=== PATIENT | male | born 1930 | race Caucasian/White ===

== ENCOUNTER 2016-11-14 16:19 | Emergency (ER) | payer MEDICARE, BC ==
--- NOTE | ~2016-11-14 | CR72 ---
[facility] A Service [facility] RADIOLOGY TEXT RESULTS PATIENT: MAXIMO GIRALDO LOCATION: [facility] : 29 UNIT #: [id number] AGE: [address]: Kenji Gant MD SEX: M ORDER DR: [id number] [place], [place] [address] [id number] E MR#: [id number] Acc #: [id number] NAME: MAXIMO GIRALDO. : 1930 SEX: M STUDY DATE/TIME: 11/14/2016 16:36 UNIT: [facility] ROOM: STUDY DESCRIPTION: CR Chest Single View Portable Attending Physician: Kenji Gant M.D. Ordering Physician: Gaye Painting M.D. Primary Care Physician: No Primary Care Physician MEDICAL IMAGING REPORT This report is preliminary unless electronic signature is present EXAM Portable chest. DATE OF EXAM 11/14/2016 INDICATIONS 86-year-old female with shortness of breath, weakness, nausea and vomiting today. COMPARISON 04/11/2016 FINDINGS Low-volume inspiration. There is mild atelectasis in the right base. Heart size stable. Atherosclerotic calcification of the aorta. Degenerative change of the shoulders. IMPRESSION No active disease. Dictated by... Blake Monte M.D. THIS IS AN ELECTRONICALLY VERIFIED REPORT Blake Monte M.D. at 11/15/2016 9:09 AM HEVER/brandi TD: 11/14/2016 21:58 JOB #: [id number] MEDICAL IMAGING REPORT [facility] A [facility] RADIOLOGY TEXT RESULTS PATIENT: MAXIMO GIRALDO LOCATION: [facility] : 29 UNIT #: [id number] AGE: [address]: Kenji Gant MD SEX: M ORDER DR: Page 1 of 1 COPY
--- NOTE | ~2016-11-14 | NM69 ---
[facility] A Service of [facility] RADIOLOGY TEXT RESULTS PATIENT: MAXIMO GIRALDO LOCATION: [facility] : 29 UNIT #: [id number] AGE: [address]: Kenji Gant MD SEX: M ORDER DR: [id number] [place], [place] [address] [id number] E MR#: [id number] Acc #: [id number] NAME: MAXIMO GIRALDO : 1930 SEX: M STUDY DATE/TIME: 11/14/2016 19:24 UNIT: [facility] ROOM: STUDY DESCRIPTION: NM Pulm Vent and Perf Attending Physician: Kenji Gant M.D. Ordering Physician: Gaye Painting M.D. Primary Care Physician: Primary Care Physician No MEDICAL IMAGING REPORT This report is preliminary unless electronic signature is present EXAM Ventilation-perfusion lung scan, 11/14/2016 CLINICAL HISTORY Hypoxemia, dizziness and weakness. Fell today at work. COMPARISON Chest radiograph same date. PROCEDURE Study performed with 34.5 mCi technetium 99m DTPA aerosol by inhalation followed by 5.9 mCi technetium 99m MAA IV. Chest radiograph shows no consolidation, effusion, pneumothorax or other definite acute abnormality. Ventilation images are normal. Perfusion images are normal except for slight heterogeneity. IMPRESSION Low likelihood ratio for pulmonary embolism. Dictated by... Romie Aleman M.D. THIS IS AN ELECTRONICALLY VERIFIED REPORT Romie Aleman M.D. at 11/17/2016 5:03 PM TEV/ljd [facility] A Service [facility] RADIOLOGY TEXT RESULTS PATIENT: MAXIMO GIRALDO LOCATION: [facility] : 29 UNIT #: [id number] AGE: [address]: Kenji Gant MD SEX: M ORDER DR: TD: 11/15/2016 01:32 JOB #: [id number] MEDICAL IMAGING REPORT Page 1 of 1 COPY
--- NOTE | ~2016-11-14 | CT57 ---
[facility] A Service of [facility] RADIOLOGY TEXT RESULTS PATIENT: MAXIMO GIRALDO LOCATION: [facility] : 29 UNIT #: [id number] AGE: [address]: Kenji Gant MD SEX: M ORDER DR: [id number] [facility] [address] [place], [place] [address] [id number] E MR#: [id number] Acc #: [id number] NAME: MAXIMO GIRALDO. : 1930 SEX: M STUDY DATE/TIME: 11/14/2016 20:47 UNIT: [facility] ROOM: STUDY DESCRIPTION: CT Chest Wo Cont Attending Physician: Kenji Gant M.D. Ordering Physician: Kenji Gant M.D. Primary Care Physician: Primary Care Physician No MEDICAL IMAGING REPORT This report is preliminary unless electronic signature is present EXAM CT chest without IV contrast. COMPARISON May 20, 2013 CT angiography chest PE protocol INDICATIONS 86-year-old male with hypoxia today. FINDINGS Axial CT imaging of the chest was performed without IV contrast. Coronal and sagittal reformats were constructed. Lack of IV contrast limits evaluation of adenopathy and vasculature. There is mild bilateral gynecomastia. Pretracheal lymph node measuring 7 mm short axis, stable and likely reactive. There is no evidence of adenopathy within the chest. There are calcified mediastinal and right hilar lymph nodes. There is moderate cardiomegaly. There are coronary artery calcifications on the left involving the circumflex and left anterior descending as well as the left main coronary arteries. There is a right-sided coronary artery stent. There is normal caliber of the pulmonary artery and thoracic aorta. There is diffuse calcification of the thoracic aorta extending into the abdominal aorta. Calcifications extend into the bilateral subclavian arteries. No pericardial effusion. Airways are widely patent. Diffuse osteopenia. 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 No acute fractures or suspicious osseous lesions. There is moderate to severe emphysema. There is dependent atelectasis in both lower lobes. No evidence of consolidative pneumonia, pneumothorax or pleural effusion. Calcified right-sided pulmonary granulomas. Calcified granulomas in the liver and spleen. There are calcifications of the abdominal aorta with extension of calcifications into the proximal renal arteries as well as the proximal celiac and superior mesenteric STS. [facility] A Service of [facility] RADIOLOGY TEXT RESULTS PATIENT: MAXIMO GIRALDO LOCATION: [facility] : 29 UNIT #: [id number] AGE: [address]: Kenji Gant MD SEX: M ORDER DR: arteries. IMPRESSION 1. No acute abnormality within the chest or imaged upper abdomen. 2. Moderate to severe emphysema. 3. There are calcifications involving the left main, left anterior descending and circumflex coronary arteries as well as the right cardiac stent. There is moderate cardiomegaly. 4. 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 5. Bilateral gynecomastia. 6. Diffuse arterial calcifications in the upper abdomen as described body report. Dictated by... Merrill Martinez M.D. THIS IS AN ELECTRONICALLY VERIFIED REPORT Merrill Martinez M.D. at 11/16/2016 6:03 PM [place] TD: 11/15/2016 06:39 JOB #: [id number] MEDICAL IMAGING REPORT Page 1 of 1 COPY
--- NOTE | ~2016-11-14 | EKG ---
PATIENT: MAXIMO GIRALDO UNIT #: [id number] Ventricular Rate: 64 BPM Atrial Rate: 64 BPM P-R Interval: 298 ms QRS Duration: 146 ms Q-T Interval: 468 ms QTC Calculation(Bezet): 482 ms P Sidney: 54 degrees Calculated R Sidney: 85 degrees Calculated T Sidney: -18 degrees Diagnosis Line: Sinus rhythm with 1st degree A-V block Diagnosis Line: Right bundle branch block with repolarization Diagnosis Line: abnormality Diagnosis Line: Cannot rule out Posterior infarct Diagnosis Line: T wave abnormality, consider inferior ischemia Diagnosis Line: Abnormal ECG Diagnosis Line: When compared with ECG of 11-APR-2016 20:50, Diagnosis Line: Premature ventricular complexes are no longer Diagnosis Line: Present Diagnosis Line: Borderline criteria for Inferior infarct are no Diagnosis Line: longer Present Diagnosis Line: T wave inversion no longer evident in Anterior Diagnosis Line: leads Diagnosis Line: Confirmed by NATALI FELDER MD ([id number]) on 11/15/2016 Diagnosis Line: 9:18:07 PM INTERPRETING MD: BRADFORD ROJO
[~2016-11-14 16:19] MED LIST: AMBIEN PO; ASPIRIN PO; ASPIRIN81 M1 PO; CIPRO PO; COUMADIN5 MG PO; ENOXAPARIN100 MG/1 M SQ; GLIPIZIDE5 MG/BOTT1 PO; GLUCOTROL PO; HUMULIN R100 U/ML SUBQ; IMDUR PO; ISOSORBIDE DINI30 MG PO; ISOSORBIDE MONO30 MG PO; K-DUR10 MEQ PO; KCL PO; KEFLEX500 MG PO; LANTUS100 U/ML SUBQ; LASIX PO; LASIX20 MG PO; LISINOPRIL PO; LISINOPRIL20 MG PO; LOPRESSOR PO; LOVENOX100 MG/ML INJ; METFORMIN HCL500 M2 PO; MOTRIN PO; NITROGYLCERIN SUBLINGUAL; NORVASC PO; NORVASC10 MG PO; NOVOLIN N100 U/M1 SQ; NOVOLIN N100 U/ML INJ; PLAVIX PO; POTASSIUM CHLO10 MEQ PO; PRINIVIL40 MG PO; SIMVASTATIN40 MG PO; TOPROL XL 50 MG50 MG PO; TRAMADOL HCL50 M1 PO; TYLENOL ARTHRITIS PO; WARFARIN SODIU7.5 MG PO; ZOCOR PO; [UNRECOGNIZED DRUG - OTHER] PO
[2016-11-14 16:28] LABS: BASOPHIL# 0.1 X10e3 (0-0.3); BASOPHIL% 0.5 % (0-2.5); EOSINOPHIL# 0.1 X10e3 (0-0.7); EOSINOPHIL% 0.9 % (0.0-7.0); HEMATOCRIT 44.1 % (38.0-50.0); HEMOGLOBIN 14.6 gm/dL (13.0-16.0); LYMPHOCYTE# 0.8 X10e3 (1.0-3.5); LYMPHOCYTE% 7.7 % (17.0-45.0); MEAN CELL VOLUME 91.8 FL (83-96); MEAN CORPUSCULAR HEMOGLOBIN 30.3 PG (28-34); MEAN PLATELET VOLUME 9.8 FL (6.5-11.5); MONOCYTE# 0.5 X10e3 (0-1.0); MONOCYTE% 5.1 % (3.0-12.0); NEUTROPHIL# 9.1 X10e3 (1.5-7.1); NEUTROPHIL% 85.8 % (40-75); PLATELET COUNT 95 X10e3 (140-420); RED BLOOD COUNT 4.81 X10e (3.90-5.60); RED CELL DISTRIBUTION WIDTH 15.2 % (11.0-15.5); WHITE BLOOD COUNT 10.6 X10e3 (4.0-10.5)
[2016-11-14 16:33] LABS: INR 1.4; PARTIAL THROMBOPLASTIN TIME 31.7 SECONDS (23.5-31.3); PROTHROMBIN TIME (PATIENT) 14.4 SECONDS (9.6-11.5)
[2016-11-14 16:47] LABS: ALBUMIN SERUM 4.3 g/dL (3.5-5.0); BILIRUBIN, DIRECT 0.2 mg/dL (0.0-0.2); BILIRUBIN,INDIRECT 1.1 mg/dL (0.0-0.9); BILIRUBIN,TOTAL 1.3 mg/dL (0.2-2.0); BUN/CREATININE RATIO 18.57; CALCIUM SERUM 8.6 mg/dL (8.4-10.2); CREATININE SERUM 1.4 mg/dL (0.6-1.4); GLOM FILT RATE Estimated 44.9 mL/min (>60); POTASSIUM 4.3 mmol/L (3.5-5.1)
[2016-11-14 16:57] LABS: DIFF IND NO
[2016-11-14 17:03] LABS: POC - CKMB 1.2 ng/mL (0.0-7.9); POC - TROPONIN <0.05 ng/mL (<=0.05)
[2016-11-14 17:11] LABS: POC - CKMB <1.0 ng/mL (0.0-7.9); POC - TROPONIN <0.05 ng/mL (<=0.05)
[2016-11-14 17:30] LABS: INFLUENZA A NEG (NEG); INFLUENZA B NEG (NEG)
[2016-11-14] MEDS ORDERED: LOPRESSOR PO (19:15)
[2016-11-14] MEDS ORDERED: MEMANTINE HCL5 MG PO (19:15)
[2016-11-14] MEDS ORDERED: MELOXICAM15 MG PO (19:16)
[2016-11-14 23:17] LABS: URINE SOURCE CLEAN CATCH
[2016-11-14 23:22] LABS: URINE APPEARANCE CLEAR; URINE BILIRUBIN NEG (NEG); URINE BLOOD NEG (NEG); URINE COLOR YELLOW; URINE GLUCOSE NEG (NEG); URINE KETONE NEG (NEG); URINE LEUKOCYTE ESTERASE NEG (NEG); URINE NITRATE NEG (NEG); URINE PH 7.5 (5-8); URINE PROTEIN NEG (NEG); URINE SPECIFIC GRAVITY 1.011 (1.003-1.035); URINE UROBILINOGEN 0.2 MG/DL (NEG)
[2016-11-14 23:26] LABS: CULTURE INDICATED? NO
== END 2016-11-14 23:40 | disposition home or self-care (01) ==
LOC: CED 16:19
PROVIDERS: Emergency Medicine
DX: J96.01 Acute respiratory failure with hypoxia (principal); I11.0 Hypertensive heart disease with heart failure; I50.9 Heart failure, unspecified; D69.6 Thrombocytopenia, unspecified; Z90.49 Acquired absence of other specified parts of digestive tract; Z88.5 Allergy status to narcotic agent; Z86.718 Personal history of other venous thrombosis and embolism
CPT/HCPCS: 71010; 71250; 78582; 80048; 80076; 81003; 82553; 82947; 83880; 84484; 85025; 85610; 85730; 87804; 93005; 96374; 99284; A9540; A9567; J0360